=== PATIENT | female | born 1955 | race Caucasian/White ===

== ENCOUNTER → 2016-09-06 | Outpatient (CLI) | payer MEDICARE ==
[~2016-09-06] MED LIST: IBUPROFEN800 MG PO; LORTAB 5/500 TA1 TA1 PO
--- NOTE | ~2016-09-06 | CR169 ---
[facility] A Service of [facility] & [facility] RADIOLOGY TEXT RESULTS PATIENT: MARY BARNES LOCATION: [facility] : 53 UNIT #: [id number] AGE: [address]: Yossi Mata Jr [employer]NER SEX: F ORDER DR: [id number] [facility] [address] [place], [place] [address] [id number] O MR#: [id number] Acc #: [id number] NAME: MARY BARNES : 1955 SEX: F STUDY DATE/TIME: 09/06/2016 17:15 UNIT: [facility] ROOM: STUDY DESCRIPTION: CR Knee 2 Views Lt Attending Physician: Yossi Mata Jr., A.P.R.Kassi Referring Physician: Yossi Mata Jr., A.P.REddie Ordering Physician: Yossi Mata Jr., A.P.R.N. Primary Care Physician: Yossi Mata Jr., A.P.R.NAngela MEDICAL IMAGING REPORT This report is preliminary unless electronic signature is present EXAM Left knee. INDICATION Knee pain below the patella with weakness in the knee for 2 months. No trauma. FINDINGS Two views of the left knee are compared with 02/21/2012. There is joint space narrowing in the medial compartment with spur formation compatible with osteoarthritis. There is also some mild osteoarthritic change in the patellofemoral compartment. No fracture is seen. There is no joint effusion. IMPRESSION Osteoarthritis, predominately in the medial and patellofemoral compartments. No acute findings. Dictated by... Tolu Hilliard Jr., M.D. THIS IS AN ELECTRONICALLY VERIFIED REPORT Tolu Hilliard Jr., M.D. at 09/07/2016 4:49 PM GILLIAN/deisi TD: 09/07/2016 09:33 JOB #: [id number] MEDICAL IMAGING REPORT Page 1 of 1 COPY
--- NOTE | ~2016-09-06 | MR113 ---
[facility] A Service of [facility] & [facility] RADIOLOGY TEXT RESULTS PATIENT: MARY BARNES LOCATION: [facility] : 53 UNIT #: [id number] AGE: [address]: Yossi Mata Jr MENTAL HEALTH UNIT LEAD PSYCHOLOGIST SEX: F ORDER DR: [id number] [facility] [address] [place], [place] [address] [id number] O MR#: [id number] Acc #: [id number] NAME: MARY BARNES : 1955 SEX: F STUDY DATE/TIME: 09/06/2016 17:47 UNIT: [facility] ROOM: STUDY DESCRIPTION: MR Lumbar Wo Contrast Attending Physician: Yossi Mata Jr., A.P.REddie Referring Physician: Yossi Mata Jr., Warren.P.REddie Ordering Physician: Yossi Mata Jr., A.P.R.Kassi Primary Care Physician: Yossi Mata Jr., A.P.REddie MRI CENTER REPORT This report is preliminary unless electronic signature is present. EXAM Lumbar spine MRI without contrast date of study 09/06/2016 COMPARISON None HISTORY Low back and left leg pain since fall 4 months ago. FINDINGS There is a grade 1 4-5 anterolisthesis without pars defect. There is a slight levoscoliosis. Bone marrow signal is normal and the distal cord and conus are normal in position and appearance. The paraspinous soft tissues are normal. At 1-2, the disc canal and foramina are normal. At 2-3, there is a slight disc bulge, slight disc desiccation and mild facet arthropathy but no canal stenosis and borderline if any bilateral foraminal narrowing. At 3-4, there is a disc bulge and facet arthropathy and mild canal stenosis, and borderline to mild right and borderline left foraminal narrowing. At 4-5, there is anterolisthesis, pseudo disc bulge, facet arthropathy and [id number] or moderate canal stenosis and mild bilateral foraminal narrowing. At 5-1, there is degenerative change but no canal stenosis or foraminal stenosis. IMPRESSION [facility] A Service of [facility] & [facility] RADIOLOGY TEXT RESULTS PATIENT: MARY BARNES LOCATION: [facility] : 53 UNIT #: [id number] AGE: [address]: Yossi Mata Jr MENTAL HEALTH UNIT LEAD PSYCHOLOGIST SEX: F ORDER DR: Lower lumbar degenerative changes including some areas of canal and foraminal narrowing. Overall most notable is degenerative grade 1 4-5 anterolisthesis with resultant mild to moderate or moderate canal stenosis. Please see above for level by level details. Dictated by... Lee Kang M.D. THIS IS AN ELECTRONICALLY VERIFIED REPORT Lee Kang M.D. at 09/12/2016 5:22 PM SADIE/rnr TD: 09/07/2016 20:13 JOB #: [id number] MRI CENTER REPORT Page 1 of 1 COPY
== END | disposition home or self-care (01) ==
LOC: CMRI 16:27
DX: M25.562 Pain in left knee (principal); M54.41 Lumbago with sciatica, right side; M17.12 Unilateral primary osteoarthritis, left knee; M43.16 Spondylolisthesis, lumbar region; M47.896 Other spondylosis, lumbar region; M48.06 Spinal stenosis, lumbar region
CPT/HCPCS: 72148; 73560